=== PATIENT | female | born 1975 | race African-American/Black ===

== ENCOUNTER 2023-07-08 21:40 | Emergency (ER) | payer OTHER, SELFPAY ==
--- NOTE | ~2023-07-08 | CT_ITS ---
EXAMINATION: CT abdomen pelvis wo con DATE: 07/09/2023 05:23 INDICATION: Low abdominal pain. Hematuria. TECHNIQUE: Computed tomography (CT) of the abdomen and pelvis was performed without intravenous contr ast. Automated exposure control and iterative reconstruction technique were employed. The dose-length product was 954.78 mGy-cm. COMPARISON: None. FINDINGS: The visualized portions of the lung bases demonstrate mild atelectasis. No pleural effusion . The heart size is normal. No pericardial effusion. There are cysts in the liver measuring up to 13 mm. The gallbladder, spleen, pancreas, adrenal glands, and left kidney are normal. There is a 13 mm s tone in right kidney. There are phleboliths in the ovarian veins. There are no dilated loops of bowel . The appendix is normal. There are no pathologically enlarged lymph nodes. There is no free intraper itoneal fluid. There are changes of posterior fusion procedure from L4 to S1. IMPRESSION: 1. Nonobstructing right kidney stone. Reviewed, dictated and finalized at location E.
[2023-07-08 21:57] VITALS: BP 141/106; PULSE 86; RESP 15; TEMP 36.4; O2SAT 98
[2023-07-08 22:16] LABS: Basophils Absolute Auto 0.1 K/mm3 (0.0-0.1); Basophils Percent Auto 0.7 % (0.2-1.2); Eosinophils Absolute Auto 0.3 K/mm3 (0-0.3); Eosinophils Percent Auto 3.3 % (0-4.4); Hematocrit 40.6 % (37.0-47.0); Hemoglobin 13.7 g/dL (12.0-15.0); Immature Granulocyte Absolute 0.03 K/mm3 (0.00-0.031); Immature Granulocyte Percent A 0.4 % (0-0.5); Lymphocytes Absolute Auto 2.21 K/mm3 (0.9-3.2); Lymphocytes Percent Auto 29.3 % (18.3-44.2); Mean Corpuscular HGB Conc 33.7 g/dl (32-36); Mean Corpuscular Hemoglobin 31.3 pg (26-34); Mean Corpuscular Volume 92.7 fl (80-100); Mean Platelet Volume 9.4 fl (7.4-10.4); Monocytes Absolute Auto 0.7 K/mm3 (0.1-0.6); Monocytes Percent Auto 8.6 % (2.6-8.5); Neutrophils Absolute Auto 4.4 K/mm3 (1.3-6.7); Neutrophils Percent Auto 57.7 % (45.5-73.1); Platelet Count Result 254 k/mm3 (150-375); Red Blood Count 4.38 M/mm3 (4.2-5.4); Red Cell Distribution Width 11.4 % (11.5-14.5); White Blood Count 7.6 K/mm3 (4.5-10.0)
[2023-07-08 22:28] LABS: Appearance Urine Turbid (Clear); Blood Urine 3+ (Negative); Color Urine Red (Yellow); Protein Urine 3+ mg/dL (Negative); Specific Grav Ur 1.015 (1.001-1.035)
[2023-07-08 22:32] LABS: Alanine Aminotransferase 24 U/L (6-35); Albumin Level 4.7 g/dL (3.5-5.1); Alkaline Phosphatase 54 U/L (38-126); Anion Gap 4 mmol/L (8-16); Aspartate Amino Transferase 31 U/L (14-36); Bilirubin,Total 0.8 mg/dL (0.2-1.3); Blood Urea Nitrogen 14 mg/dL (7-17); Calcium 9.4 mg/dL (8.4-10.2); Carbon Dioxide 33 mmol/L (22-30); Chloride 101 mmol/L (98-107); Estimated CRCL calculation 82 ml/min; Estimated Glomerular Filt Rate > 60; Glucose 110 mg/dL (65-110); Lipase 72 U/L (23-300); Potassium 3.4 mmol/L (3.4-5.0); Sodium 138 mmol/L (137-145)
[2023-07-08 22:33] LABS: Add Urine Microscopic? YES; RBC Urine >100 /hpf (0-2)
[2023-07-08 22:35] LABS: Bacteria Urine Trace /hpf; Squamous Epithelial Cell Urine Few /hpf (Few); WBC Urine 0-5 /hpf (0-3)
[2023-07-09 02:42] VITALS: BP 146/89; PULSE 88; RESP 19; O2SAT 99
[2023-07-09 04:00] VITALS: BP 108/77; PULSE 88; RESP 19; O2SAT 98
--- NOTE | 2023-07-09 06:15 | ED.GENADULT ---
HPI - General Adult General Chief complaint: Urogenital-Female Stated complaint: UTI Time Seen by Provider: 07/09/23 04:41 History of Present Illness HPI narrative: Patient 58-year-old female who presents the emergency department with chief complaint of dysuria and blood in the urine. Patient reports is been having some painful urination and discomfort in her abdomen. Patient states she been taking Azo without relief patient does report that she has prior history of kidney stones the patient denies being on blood thinners denies trauma. Related Data Allergies Allergy/AdvReac Type Severity Reaction Status Date / Time No Known Allergies Allergy Verified 07/08/23 21:41 Review of Systems Review of Systems: A 10 system review of systems was completed on the patient and is negative except for what is stated in the HPI. Nursing and ancillary documentation was reviewed. Exam Narrative: GENERAL: Well-appearing, well-nourished, and in no acute distress. HEAD: Normocephalic, atraumatic. EYES: PERRLA and EOMI. ENT: Nares clear, no rhinorrhea or epistaxis. Mucous membranes moist. NECK: Supple. CHEST: Clear to auscultation. No respiratory distress. HEART: Regular rate and rhythm. No murmur heard. Normal peripheral pulses. ABDOMEN: Soft, nontender, nondistended, normal active bowel sounds. EXTREMITIES: Normal range of motion. No edema. SKIN: Warm, dry, no rash. NEURO: No focal deficits. Alert and oriented x3. PSYCH: Normal mood and affect. Course Vital Signs Vital signs: Vital Signs Temperature 36.4 C 07/08/23 21:57 Pulse Rate 86 07/08/23 21:57 Respiratory Rate 15 07/08/23 21:57 Blood Pressure 141/106 H 07/08/23 21:57 Pulse Oximetry 98 07/08/23 21:57 Oxygen Delivery Room Air 07/08/23 21:57 Temperature 36.4 C 07/08/23 21:57 Pulse Rate 88 07/09/23 04:00 Respiratory Rate 19 07/09/23 04:00 Blood Pressure 108/77 07/09/23 04:00 Pulse Oximetry 98 07/09/23 04:00 Oxygen Delivery Room Air 07/08/23 21:57 Medical Decision Making MDM Narrative Medical decision making narrative: Differential diagnoses UTI, hematuria, kidney stone, ureterolithiasis, Unable to determine if there was nitrate or leukocyte esterase due to blood The patient will be started on a oral antibiotic as she may have a form of cystitis CT scan of the abdomen pelvis showed no evidence of obstructing stone and no evidence of bladder mass Vital Signs Vital Signs: Vital Signs Temperature 36.4 C 07/08/23 21:57 Pulse Rate 86 07/08/23 21:57 Respiratory Rate 15 07/08/23 21:57 Blood Pressure 141/106 H 07/08/23 21:57 Pulse Oximetry 98 07/08/23 21:57 Oxygen Delivery Room Air 07/08/23 21:57 Temperature 36.4 C 07/08/23 21:57 Pulse Rate 88 07/09/23 04:00 Respiratory Rate 19 07/09/23 04:00 Blood Pressure 108/77 07/09/23 04:00 Pulse Oximetry 98 07/09/23 04:00 Oxygen Delivery Room Air 07/08/23 21:57 Lab Data 07/08/23 22:07 07/08/23 22:07 Labs: Lab Results 07/08/23 Range/Units 22:07 WBC 7.6 (4.5-10.0) K/mm3 RBC 4.38 (4.2-5.4) M/mm3 Hgb 13.7 (12.0-15.0) g/dL Hct 40.6 (37.0-47.0) % MCV 92.7 (80-100) fl MCH 31.3 (26-34) pg MCHC 33.7 (32-36) g/dl RDW 11.4 L (11.5-14.5) % Plt Count 254 (150-375) k/mm3 MPV 9.4 (7.4-10.4) fl Immature Gran % (Auto) 0.4 (0-0.5) % Neut % (Auto) 57.7 (45.5-73.1) % Lymph % (Auto) 29.3 (18.3-44.2) % [place] % (Auto) 8.6 H (2.6-8.5) % Eos % (Auto) 3.3 (0-4.4) % Baso % (Auto) 0.7 (0.2-1.2) % Lymph # (Auto) 2.21 (0.9-3.2) K/mm3 [place] # (Auto) 0.7 H (0.1-0.6) K/mm3 Eos # (Auto) 0.3 (0-0.3) K/mm3 Baso # (Auto) 0.1 (0.0-0.1) K/mm3 Abs Immat Gran (auto) 0.03 (0.00-0.031) K/mm3 Absolute Neuts (auto) 4.4 (1.3-6.7) K/mm3 Absolute Nucleated RBC 0.0 (0.0-0.012) K/mm3 Nucleated RBC % 0.0 (0.0-0.2) % Sodium 138 (137-145) mmol/L Potassium
[2023-07-09 06:20] VITALS: BP 123/87; PULSE 79; RESP 14; O2SAT 97
== END 2023-07-09 06:20 | disposition home or self-care (01) ==
PROVIDERS: Emergency Provider Emergency Medicine
DX: N30.91 Cystitis, unspecified with hematuria (principal)
CPT/HCPCS: 36415; 74176; 80053; 81001; 83690; 85025; 99284

== ENCOUNTER 2023-09-25 09:51 | Emergency (ER) | payer OTHER, SELFPAY ==
[2023-09-25 09:56] VITALS: BP 140/99; PULSE 73; RESP 18; TEMP 36.6; O2SAT 97
[2023-09-25 10:23] LABS: Appearance Urine Cloudy (Clear); Bacteria Urine None Seen /hpf; Bilirubin Urine Negative (Negative); Blood Urine 3+ (Negative); Color Urine Dark Yellow (Yellow); Glucose Urine UA Negative (Negative); Ketones Urine Negative (Negative); Leukocyte Esterase Ur 3+ LEU/UL (Negative); Need Manual Microscopic Reviewed; Nitrate Urine Positive (Negative); Non Pathogenic Casts 0-2; Protein Urine Trace mg/dL (Negative); RBC Urine >100 /hpf (0-2); Specific Grav Ur 1.007 (1.001-1.035); Squamous Epithelial Cell Urine None seen /hpf (Few); WBC Urine >100 /hpf; pH Urine 5.5 (5.0-9.0)
[2023-09-25 10:26] LABS: Add Urine Microscopic? YES
--- NOTE | 2023-09-25 10:33 | ED.FEMALEGU ---
HPI - Female Genitourinary General Chief complaint: Urogenital-Female Stated complaint: UTI Time Seen by Provider: 09/25/23 10:32 Source: patient Mode of arrival: ambulatory Limitations: no limitations History of Present Illness HPI Narrative: Patient is a pleasant 48-year-old female without significant past medical history presents to the emergency department today ambulatory for evaluation of burning with urination and concerns of UTI. Symptoms started this morning. Denies any fever, chills, nausea, vomiting, flank pain, blood in her urine, concerns addressed the abdominal pain, no symptoms. Related Data Allergies Allergy/AdvReac Type Severity Reaction Status Date / Time No Known Allergies Allergy Verified 07/08/23 21:41 Review of Systems Review of Systems: CONSTITUTIONAL: Denies fever, chills, or sweats. CARDIOVASCULAR: Denies chest pain, palpitations, or edema. RESPIRATORY: Denies cough or dyspnea. GASTROINTESTINAL: Denies abdominal pain, nausea, vomiting, or diarrhea. GENITOURINARY: +dysuria, burning. denies flank pain or blood in the urine. SKIN: Denies rash or itching. MUSCULOSKELETAL: Denies back pain, joint pain, or myalgia. NEUROLOGIC: Denies headache, numbness, or weakness. All systems reviewed & are unremarkable except as noted in HPI and below Exam Narrative: GENERAL: Well-appearing, well-nourished, and in no acute distress. HEAD: Normocephalic, atraumatic. ENT: Nares clear. Mucous membranes moist. CHEST: Clear to auscultation. No respiratory distress. HEART: Regular rate and rhythm. Normal peripheral pulses. ABDOMEN: Soft, nontender, nondistended, normal active bowel sounds. EXTREMITIES: Normal range of motion. SKIN: Warm, dry, no rash. NEURO: No focal deficits. Alert and oriented x3. PSYCH: Normal mood and affect. Course Vital Signs Vital signs: Vital Signs Temperature 97.8 F 09/25/23 09:56 Pulse Rate 73 09/25/23 09:56 Respiratory Rate 18 09/25/23 09:56 Blood Pressure 140/99 H 09/25/23 09:56 Pulse Oximetry 97 09/25/23 09:56 Temperature 97.8 F 09/25/23 09:56 Pulse Rate 73 09/25/23 09:56 Respiratory Rate 18 09/25/23 09:56 Blood Pressure 140/99 H 09/25/23 09:56 Pulse Oximetry 97 09/25/23 09:56 MDM - Female Genitourinary MDM Narrative Medical decision making narrative: presents for concerns of UTI. Urine shows findings consistent with infection. Will treat with antibiotics. She has no flank pain no history kidney stones. Patient is nontoxic in appearance. Stable re-evaluation exam just before discharge. Patient in no acute distress. Vitals within normal limits. Discussed return precautions with the patient including all the red flag signs or symptoms of when to return the patient. The patient verbalized understanding and was agreeable with discharge and close follow-up Differential Diagnosis Differential diagnosis: Likely urinary tract infection Medical Records Attestation: I reviewed the patient's medical records. Lab Data Attestation: I reviewed the patient's lab results. Lab results narrative: Urine shows obvious infection Labs: Lab Results 09/25/23 Range/Units 10:03 Urine Color Dark yellow (Yellow) Urine Appearance Cloudy H (Clear) Urine pH 5.5 (5.0-9.0) Ur Specific [place] 1.007 (1.001-1.035) Urine Protein Trace (Negative) mg/dL Urine Glucose (UA) Negative (Negative) mg/dL Urine Ketones Negative (Negative) mg/dL Ur Blood (Man) 3+ H (Negative) Urine Nitrate Positive H (Negative) Urine Bilirubin Negative (Negative) Urine Urobilinogen 1.0 (<2.0) mg/dL Add Ur Microanalysis Reviewed Leukocyte Esterase Rfl 3+ H (Negative) KALI/UL Urine RBC >100 H (0-2) /hpf Urine WBC >100 H /hpf Ur Squamous Epith Cells None seen (Few) /hpf Urine Bacteria None seen /hpf Urine Casts 0-2 UCG Bedside Result Negative Re
[2023-09-25] MEDS: HYOSCYAMINE SULFATE 0.125 MG TABLET PO (10:59)
== END 2023-09-25 11:00 | disposition home or self-care (01) ==
PROVIDERS: Emergency Medicine; Emergency Provider Nurse Practitioner
DX: N30.01 Acute cystitis with hematuria (principal); R30.0 Dysuria
CPT/HCPCS: 81001; 81025; 87086; 87088; 99283; A9270

== ENCOUNTER 2024-05-15 20:17 | Emergency (ER) | payer OTHER, SELFPAY ==
[2024-05-15 20:30] VITALS: BP 175/91; PULSE 62; RESP 18; TEMP 36.2; O2SAT 99
--- NOTE | 2024-05-15 21:44 | ED.HA ---
HPI - Headache General Chief Complaint: Headache Stated Complaint: migraine Time Seen by Provider: 05/15/24 21:37 History of Present Illness HPI Narrative: 48-year-old female with a history of migraines and hypertension presents to the emergency department for migraine that started around 15 30 this afternoon. Patient states the pain is sharp and behind her right eye. States this is normally how her migraines presents. She reports associated photophobia, denies phonophobia, fever. Denies nausea or vomiting, chest pain shortness of breath, abdominal pain, head injury trauma, neck pain. She reports using Excedrin Tylenol prior to arrival without improvement. She was seen at the [facility] couple days ago for a migraine for which she received a headache cocktail with improvement. States she has an appointment with a neurologist in 6 days At the [place]. Related Data Allergies Allergy/AdvReac Type Severity Reaction Status Date / Time No Known Allergies Allergy Verified 07/08/23 21:41 Review of Systems Review of Systems: All systems reviewed & are unremarkable except as noted in HPI and below Exam Narrative: GENERAL: Well-appearing, well-nourished, and in no acute distress. HEAD: Normocephalic, atraumatic. EYES: PERRLA and EOMI. ENT: Nares clear, no rhinorrhea or epistaxis. Mucous membranes moist. NECK: Supple. CHEST: Clear to auscultation. No respiratory distress. HEART: Regular rate and rhythm. No murmur heard. Normal peripheral pulses. ABDOMEN: Soft, nontender, nondistended, normal active bowel sounds. EXTREMITIES: Normal range of motion. No edema. SKIN: Warm, dry, no rash. NEURO: No focal deficits. Alert and oriented x3. Cranial nerves 2-12 intact. Strength out of 5/5 in BUE and BLE. Sensation intact throughout. Course Vital Signs Vital signs: Vital Signs Temperature 97.2 F L 05/15/24 20:30 Pulse Rate 62 05/15/24 20:30 Respiratory Rate 18 05/15/24 20:30 Blood Pressure 175/91 H 05/15/24 20:30 Pulse Oximetry 99 05/15/24 20:30 Oxygen Delivery Room Air 05/15/24 20:30 Temperature 97.2 F L 05/15/24 20:30 Pulse Rate 62 05/15/24 20:30 Respiratory Rate 18 05/15/24 20:30 Blood Pressure 175/91 H 05/15/24 20:30 Pulse Oximetry 99 05/15/24 20:30 Oxygen Delivery Room Air 05/15/24 20:30 MDM - Headache MDM Narrative Medical decision making narrative: 38-year-old female with history of hypertension and migraines presents to the emergency department for A migraine that started a couple hours prior to arrival. Triage vital significant for hypertension of 175/90, otherwise unremarkable. She is afebrile nontoxic appearing. She is neurovascularly intact without focal deficits. States her presentation is consistent with her normal migraine presentation. Do not feel need to obtain a CT head or lab work at this time. Will treat with migraine cocktail and fluids and re-evaluate. Patient received IV fluids, Toradol and Compazine with significant improvement. She is ready discharge home. Advised to follow-up closely with the neurologist at the appointment she has in 6 days and discuss strict ED return precautions. She is agreeable with the plan verbalized understanding. Discharged in stable condition. Discharge Plan Discharge Clinical Impression: Migraine Qualifiers: Migraine type: unspecified Status migrainosus presence: with status migrainosus Intractability: intractable Qualified Code(s): G43.911 - Migraine, unspecified, intractable, with status migrainosus Patient Disposition: Home, Self-Care Condition: Stable Instructions: Antibiotic Form, Migraine Headache (ED) Additional Instructions: Your evaluated in the emergency department for a migraine. Your given a headache cocktail and fluids with improvement. Please follow-up with the neurologist at your appointment on Tuesday morning. Return to the emergency department if you develop vision changes, focal numbness o
[2024-05-15] MEDS: SODIUM CHLORIDE 0.9% IV 1,000 ML 999 ML IV CONT (22:12)
--- NOTE | 2024-05-15 22:12 | ECG_ITS ---
Test Date: 2024-05-15 22:21:48 Measurements Intervals [place] Rate: 51 P: 63 OK: 184 QRS: 0 QRSD: 85 T: 24 QT: 431 QTc: 399 Interpretive Statements SINUS BRADYCARDIA WITH OCCASIONAL SUPRAVENTRICULAR PREMATURE COMPLEXES NONSPECIFIC T-WAVE ABNORMALITY No previous ECG available for comparison Electronically Signed On 05-16-2024 15:54:33 CDT by Elliot Ramey M.D.
[2024-05-15] MEDS: diphenhydrAMINE HCl INJ 50 MG/ML VIAL 25 MG IV PUSH (22:13)
[2024-05-15] MEDS: KETOROLAC 15 MG/ML VIAL (*BKC) IV PUSH (22:13)
[2024-05-15] MEDS: PROCHLORPERAZINE EDISYLATE 10 MG/2 ML VIAL IV PUSH (22:13)
[2024-05-15 23:20] VITALS: BP 113/94; PULSE 61; RESP 14; O2SAT 100
== END 2024-05-15 23:25 | disposition home or self-care (01) ==
PROVIDERS: Emergency Provider Physician Assistant
DX: G43.911 Migraine, unspecified, intractable, with status migrainosus (principal); I10 Essential (primary) hypertension; R00.1 Bradycardia, unspecified; I49.1 Atrial premature depolarization
CPT/HCPCS: 93005; 96361; 96374; 96375; 99284; J0780; J1200; J1885; J7030